=== PATIENT | male | born 1995 | race Caucasian/White ===

== ENCOUNTER 2017-11-18 09:30 | Emergency (ER) | payer BC, OTHER | END 2017-11-18 11:17 | disposition home or self-care (01) | LOC: FTE 09:30 | DX: S69.91XD Unspecified injury of right wrist, hand and finger(s), subsequent encounter (principal); W19.XXXD Unspecified fall, subsequent encounter; Y92.9 Unspecified place or not applicable | CPT/HCPCS: 29130; 73130-RT; 99283-25 ==

== ENCOUNTER 2018-06-13 03:00 | Emergency (ER) | payer BC | END 2018-06-13 04:12 | disposition home or self-care (01) | LOC: FTE 03:00 | DX: R19.7 Diarrhea, unspecified (principal) | CPT/HCPCS: 99283; Z7502 ==